=== PATIENT | male | born 2000 | race Hispanic/Latino ===

== ENCOUNTER 2020-03-28 00:02 | Emergency (ER) | payer OTHER ==
[~2020-03-28] VITALS: Ht 185.4 cm; Wt 95.3 kg
[2020-03-28] MEDS ORDERED: ACETAMINOPHEN500 MG PO (00:22)
[2020-03-28] MEDS ORDERED: IBUPROFEN IB200 MG PO (00:22)
--- NOTE | 2020-03-28 00:22 | Emergency Department Note ---
History of Present Illnes History of Present Illness Chief Complaint: General Medicine Complaints History of Present Illness This is a 19 year old male c/o chest pain from the front to the back. he was lifting eight and the weight slipped and landed on his chest. . Arrival Mode: Car Rotary Drill Operator Required: No Onset (how long ago): hour(s) Radiation: Reports back Severity: moderate Onset quality: sudden Timing of current episode: constant Progression: improving Relieving factors: none Exacerbating factors: none Associated symptoms: Reports denies other symptoms Treatments prior to arrival: none Past Medical/Family History Physician Review I have reviewed the patient's past medical and family history. Any updates have been documented here. Past Medical History Recent Fever: No Clinical Suspicion of Infectio: No New/Unexplained Change in Ment: No Other Medical History: scoliosis Past Surgical History: None Social History Smoking Cessation: Unknown if ever smoked Alcohol Use: Social Any Illegal Drug Use: No Physically hurt or threatened: No Family History Family history of heart diseas: No Review of Systems Review of Systems Constitutional: Reports no symptoms EENTM: Reports no symptoms Cardiovascular: Reports no symptoms Respiratory: Reports no symptoms Gastrointestinal: Reports no symptoms Genitourinary: Reports no symptoms Musculoskeletal: Reports as per HPI, Reports back pain Integumentary: Reports no symptoms Neurological: Reports no symptoms Psychological: Reports no symptoms Endocrine: Reports no symptoms Hematological/Lymphatic: Reports no symptoms Physical Exam Physical Exam CONSTITUTIONAL Constitutional: Present well-developed, Present well-nourished HENT HENT: Present normocephalic, Present atraumatic, Present oropharynx clear/moist, Present nose normal HENT L/R: Present left ext ear normal, Present right ext ear normal EYES Eyes: Reports PERRL, Reports conjunctivae normal NECK Neck: Present ROM normal PULMONARY Pulmonary: Present effort normal, Present breath sounds normal CARDIOVASCULAR Cardiovascular: Present regular rhythm, Present heart sounds normal, Present capillary refill normal, Present normal rate GASTROINTESTINAL Abdominal: Present soft, Present nontender, Present bowel sounds normal GENITOURINARY Genitourinary: Present exam deferred SKIN Skin: Present warm, Present dry MUSCULOSKELETAL Musculoskeletal: Present ROM normal NEUROLOGICAL Neurological: Present alert, Present oriented x 3, Present no gross motor or sensory deficits PSYCHOLOGICAL Psychological: Present mood/affect normal, Present judgement normal Results Imaging Imaging results reviewed: Yes Imaging Comments cxr no acute Assessment & Plan Medical Decision Making MDM chest trauma Reassessment Reassessment time: 00:37 Reassessment no pain, in NAD Assessment & Plan Final Impression: (1) Acute pain due to trauma (2) Chest wall contusion Depart Disposition: HOME, SELF-longterm Meds Active Scripts Ibuprofen (IBUPROFEN IB) 200 Mg Tablet, 3 TAB PO Q6H PRN for pain, #60 Prov:ELISABET UGARTE MD 03/28/20 Acetaminophen (ACETAMINOPHEN) 500 Mg Tablet, 1 TAB PO Q6H for pain or fever, #60 THERAPEUTICALLY SUBSTITUTED WITH ACETAMINOPHEN 325MG Prov:ELISABET UGARTE MD 03/28/20 ELISABET UGARTE MD Mar 28, 2020 00:22
--- NOTE | 2020-03-28 00:34 | Diagnostic Imaging Report ---
EXAMINATION: CXR 2 VIEW - HOPD INDICATION: chest trauma COMPARISON: None FINDINGS: TUBES and LINES: None. LUNGS: Lungs are well inflated. There is no evidence of pneumonia or pulmonary edema. PLEURA: No pleural effusion or pneumothorax. HEART AND MEDIASTINUM: The cardiomediastinal silhouette is unremarkable. BONES AND SOFT TISSUES: No acute osseous lesion. Soft tissues are unremarkable. UPPER ABDOMEN: No free air under the diaphragm. IMPRESSION: No acute thoracic abnormality. Signed by: Dr. Kandi Renee MD on 03/28/2020 12:31 AM
== END 2020-03-28 01:49 | disposition home or self-care (01) ==
LOC: FSED 00:10
DX: R07.89 Other chest pain (principal); S20.219A Contusion of unspecified front wall of thorax, initial encounter; W22.8XXA Striking against or struck by other objects, initial encounter; Y93.B3 Activity, free weights
CPT/HCPCS: 71046; 99283